=== PATIENT | female | born 1975 | race Two or more races ===

== ENCOUNTER 2016-11-19 20:04 | Emergency (ER) | payer SELFPAY ==
[~2016-11-19] VITALS: Ht 157.5 cm; Wt 66.7 kg
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
[2016-11-19] MEDS ORDERED: ACETAMINOPHEN 325 MG TABLET PO STA (20:17)
[2016-11-19] MEDS ORDERED: LORAZEPAM 1 MG TABLET PO STA (20:17)
[2016-11-19] MEDS ORDERED: LORAZEPAM 1 MG TABLET ONE (20:20)
[2016-11-19] MEDS ORDERED: ACETAMINOPHEN 325 MG TABLET ONE (20:20)
--- NOTE | 2016-11-19 21:31 | NUR ---
Patient discharged to home in stable condition. Written and verbal after care instructions given. Patient verbalizes understanding of instruction. ambulatory with a steady gait
[2016-11-19 21:32] VITALS: BP 134/82
== END 2016-11-19 21:32 | disposition home or self-care (01) ==
LOC: ER 20:09
DX: R07.89 Other chest pain (principal); V43.52XA Car driver injured in collision with other type car in traffic accident, initial encounter; Y93.89 Activity, other specified; Y92.89 Other specified places as the place of occurrence of the external cause; Y99.9 Unspecified external cause status
CPT/HCPCS: 71010; 73090; 93005; 99284; A4606 ×2; Z7610 ×2